=== PATIENT | female | born 2000 | race Caucasian/White ===

== ENCOUNTER 2019-12-15 09:44 | Emergency (ER) | payer OTHER ==
--- NOTE | 2019-12-15 11:30 | ULT ---
Sonogram right upper quadrant HISTORY: Right upper quadrant pain. COMPARISON: CT abdomen 12/15/2019. FINDINGS: Multiple shadowing echogenic stones are apparent within the gallbladder lumen. Gallbladder measures up to 9.3 cm length. Patient was reportedly not tender over the gallbladder fossa at the time of the exam. No gallbladder wall thickening. Minimal pericholecystic fluid. Common duct upper limits of normal at 0.7 cm. Liver shows no focal abnormalities. No free fluid. IMPRESSION : Cholelithiasis. Gallbladder distention and common bile duct upper limits of normal in size are nonspe cific and can be seen with central biliary obstruction. Patient was reportedly not tender over the gallbladder fossa at the time of the exam. Clinical correlation regarding other signs and symptoms of central biliary obstruction is required. R adionucleotide hepatobiliary scan could be used to evaluate for biliary patency if needed.
== END 2019-12-15 13:29 | disposition home or self-care (01) ==
LOC: ERS 09:44
DX: K80.20 Calculus of gallbladder without cholecystitis without obstruction (principal)
CPT/HCPCS: 76705